=== PATIENT | male | born 1960 | race Caucasian/White ===

== ENCOUNTER → 2021-01-25 | Outpatient (CLI) | payer OTHER ==
--- NOTE | 2021-01-25 14:30 | TST ---
[facility] [place] [address] TREADMILL STRESS TEST Name: RAFAT CHILDS [id number] Admission: 01/25/21 Attend Phys: Alfred Hatch MD Discharge: Date of : 64 Report #: [id number] THIS REPORT FOR: cc: Jaylan Mata Trystan J. DO Santiago, Patrick MD [facility] ~ APPROVED REPORT Patient Location: Out-Patient, CV HOLDING Room #: Stress Nurse: The patient exercised according to the HILL protocol for 9 mins; achieving a work level of 10.4 METS. The resting heart rate of 62 bpm west[place] to a maximum heart rate of 193 bpm. This value represent 119% of the maximal, age-predicted heart rate. The resting blood pressure of 135/96 mmHg, westley to a maximum blood pressure of 160/90 mmHg. The exercise test was stopped due to Maximal effort Normal sinus rhythm at a rate of 90 BPM at baseline with single VPC Significant artifact throughout the protocol unable to interpret for ischemia Recommend repeating the stress test with documented protocol i.e. pharmacological stress test. Kendall Knapp MD Conclusion Normal sinus rhythm at a rate of 90 BPM at baseline with single VPC Significant artifact throughout the protocol, unable to interpret for ischemia Recommend repeating the stress test with augmented protocol i.e. pharmacological stress nuclear scan. <ELECTRONICALLY SIGNED> By: Kendall Knapp MD, FACC 01/25/21 1430 1430 143 Kendall Knapp MD, FACC /INF
== END ==
LOC: CV 10:27
PROVIDERS: ATTEND Internal Medicine Cardiovascular Disease
DX: R93.1 Abnormal findings on diagnostic imaging of heart and coronary circulation (principal)